=== PATIENT | male | born 1950 | race Caucasian/White ===

== ENCOUNTER 2019-11-19 05:25 | Day surgery (SDC) | payer MEDICARE ==
[~2019-11-19] VITALS: Ht 157.5 cm; Wt 63.1 kg
[2019-11-19] MEDS ORDERED: TAMS-11 PO (06:06)
[2019-11-19] MEDS ORDERED: OFLO5DRO7 TP (06:06)
[2019-11-19] MEDS ORDERED: LOTE2.8D TP (06:06)
[2019-11-19] MEDS ORDERED: FINA5TAB4 PO (06:06)
[2019-11-19] MEDS ORDERED: GABA100C PO (06:06)
[2019-11-19] MEDS ORDERED: LACTATED RINGERS 1,000 ML IV SCH (06:26)
[2019-11-19] MEDS ORDERED: CHLORHEXIDINE 15 ML UDC MM ONE (06:30)
[2019-11-19 06:55] VITALS: BP 136/75
[2019-11-19 06:55] LABS: MICROSCOPIC AUTO
[2019-11-19 07:02] LABS: BASOPHILS # (AUTO) 0.01 x10^3/uL (0-0.1); BASOPHILS % (AUTO) 0 % (0-1); EOSINOPHILS # (AUTO) 0.05 x10^3/uL (0-0.4); EOSINOPHILS % (AUTO) 1 % (1-7); LYMPHOCYTES # (AUTO) 1.16 x10^3/uL (1-3.4); LYMPHOCYTES % (AUTO) 22 % (22-44); MD NO; MEAN CORPUSCULAR HEMOGLOBIN 31.5 pg (27.5-34.5); MEAN CORPUSCULAR HGB CONC 33.8 g/dL (33.2-36.2); MEAN CORPUSCULAR VOLUME 93.2 fL (81-97); MEAN PLATELET VOLUME 8.3 fL (7.4-10.4); MONOCYTES # (AUTO) 0.35 x10^3/uL (0.2-0.8); MONOCYTES % (AUTO) 7 % (2-9); NEUTROPHILS # (AUTO) 3.79 x10^3/uL (1.8-6.8); NEUTROPHILS % (AUTO) 71 % (42-75); PLATELET COUNT 227 x10^3/uL (130-400); RED BLOOD COUNT 5.27 x10^6/uL (4.38-5.82); RED CELL DISTRIBUTION WIDTH 13.5 % (9.4-14.8)
[2019-11-19 07:09] LABS: PROTHROMBIN TIME 10.6 Seconds (9.6-11.5)
[2019-11-19 07:11] LABS: ALANINE AMINOTRANSFERASE 29 U/L (12-78); ALBUMIN 3.9 g/dL (3.4-5.0); ANION GAP 5 mmol/L (5-15); CALCIUM 8.6 mg/dL (8.5-10.1); CHLORIDE 110 mmol/L (98-107); CREATININE 0.63 mg/dL (0.7-1.3)
[2019-11-19 07:14] LABS: ALKALINE PHOSPHATASE 74 U/L (45-117); TOTAL PROTEIN 7.6 g/dL (6.4-8.2)
[2019-11-19] MEDS ORDERED: MIDAZOLAM 1 MG/ML, 2ML ONE (07:17)
[2019-11-19] MEDS ORDERED: FENTANYL PF 100 MCG/2ML ONE ×2 (07:17→07:45)
[2019-11-19] MEDS ORDERED: KETOROLAC 30 MG/1 ML IV PRN (08:00)
[2019-11-19] MEDS ORDERED: MEPERIDINE/PF 25MG/0.5ML IVPush PRN (08:00)
[2019-11-19] MEDS ORDERED: DIAZEPAM 5 MG/ML, 2ML IVPush PRN (08:00)
[2019-11-19] MEDS ORDERED: HYDROmorphone 2 MG/ML, 1ML IVPush PRN (08:00)
[2019-11-19] MEDS ORDERED: hydrALAzine 20 MG/ML, 1ML IV PRN (08:00)
[2019-11-19] MEDS ORDERED: FENTANYL PF 100 MCG/2ML IV PRN (08:00)
[2019-11-19] MEDS ORDERED: ACETAMINOPHEN 325 MG TABLET PO PRN (08:00)
[2019-11-19] MEDS ORDERED: OXYcodone 5 MG/5 ML ORAL.SOL UDC PO PRN (08:00)
[2019-11-19] MEDS ORDERED: LABETALOL 5MG/ML, 20ML IV PRN (08:00)
[2019-11-19] MEDS ORDERED: PROMETHAZINE 25 MG/ML, 1ML IV PRN (08:00)
[2019-11-19] MEDS ORDERED: ALBUTEROL SULFATE 2.5 MG/3 ML NPPB PRN (08:00)
[2019-11-19] MEDS ORDERED: NEOSTIGMINE 1 MG/ML, 10ML ONE (08:27)
[2019-11-19] MEDS ORDERED: SUCCINYLCHOLINE 20 MG/ML, 10ML ONE (08:27)
[2019-11-19] MEDS ORDERED: ROCURONIUM 10MG/ML,5ML ONE (08:27)
[2019-11-19] MEDS ORDERED: PROPOFOL 10 MG/ML, 20ML ONE (08:27)
[2019-11-19] MEDS ORDERED: CEFAZOLIN 1,000 MG ONE (08:27)
[2019-11-19] MEDS ORDERED: GLYCOPYRROLATE 0.2MG/1ML, 5ML ONE (08:27)
[2019-11-19] MEDS ORDERED: DEXAMETHASONE 4 MG/ML, 1ML ONE (08:27)
[2019-11-19] MEDS ORDERED: ONDANSETRON 2MG/ML, 2ML ONE (08:27)
== END 2019-11-19 11:50 | disposition home or self-care (01) ==
LOC: OUT 05:25
PROVIDERS: ATTEND Urology
DX: N21.0 Calculus in bladder (principal); Z11.59 Encounter for screening for other viral diseases; Z79.2 Long term (current) use of antibiotics; Z79.899 Other long term (current) drug therapy; Z98.890 Other specified postprocedural states
CPT/HCPCS: 36415; 52317; 80053; 81001; 82360; 85025; 85610; 87077; 87086; 87186; 87635; 88300; 93005; J0690; J1100; J2250; J2405; J2704; J3010; J7120; J2710; J0330

== ENCOUNTER 2020-02-03 08:37 | Inpatient (IN) | payer MEDICARE ==
[~2020-02-03] VITALS: Ht 157.5 cm; Wt 81.8 kg
[~2020-02-03 08:37] MED LIST: FINA5TAB4 PO; GABA100C PO; LOTE2.8D TP; OFLO5DRO7 TP; TAMS-11 PO
--- NOTE | 2020-02-03 08:59 | NUR ---
Pt arrives to ed for chronic cough with body aches. Pt reports chills at home and is unable to feel better. Pt reports son was ill at home. Pt reports negative COVID test in november. Pt in room awaiting further orders. Report to Low SZYMANSKI
[2020-02-03] MEDS ORDERED: ACETAMINOPHEN 500 MG TABLET ONE ×2 (09:09→09:12)
[2020-02-03] MEDS ORDERED: SODIUM CHLORIDE FLUSH 10ML SYR IVF ONE (09:30)
[2020-02-03] MEDS ORDERED: ACETAMINOPHEN 500 MG TABLET PO ONE (09:30)
[2020-02-03 09:55] LABS: BASOPHILS % (AUTO) 0 % (0-1); EOSINOPHILS % (AUTO) 0 % (1-7); LYMPHOCYTES % (AUTO) 19 % (22-44); MEAN CORPUSCULAR HEMOGLOBIN 30.5 pg (27.5-34.5); MEAN PLATELET VOLUME 7.6 fL (7.4-10.4); MONOCYTES % (AUTO) 11 % (2-9); NEUTROPHILS % (AUTO) 69 % (42-75); PLATELET COUNT 225 x10^3/uL (130-400); RED BLOOD COUNT 4.83 x10^6/uL (4.38-5.82); RED CELL DISTRIBUTION WIDTH 13.6 % (9.4-14.8)
[2020-02-03 09:58] LABS: ALBUMIN 3.2 g/dL (3.4-5.0); ANION GAP 7 mmol/L (5-15); CALCIUM 8.4 mg/dL (8.5-10.1); CHLORIDE 109 mmol/L (98-107); CREATININE 0.66 mg/dL (0.7-1.3)
[2020-02-03 09:59] LABS: MD NO
[2020-02-03] MEDS ORDERED: CEFTRIAXONE PMX 1GM/50ML 50 ML IV ONE (10:00)
[2020-02-03] MEDS ORDERED: SODIUM CHLORIDE 0.9% 1,000ML IVBOLUS ONE (10:00)
[2020-02-03] MEDS ORDERED: AZITHROMYCIN 500 MG in SODIUM CHLORIDE 0.9% 250 ML IV ONE (10:00)
[2020-02-03] MEDS ORDERED: CEFTRIAXONE PMX 1GM/50ML 50 ML ONE (10:03)
[2020-02-03] MEDS ORDERED: SODIUM CHLORIDE FLUSH 10ML SYR IVF PRN (11:30)
--- NOTE | 2020-02-03 11:51 | NUR ---
BREAK RN: MEAL TRAY ORDERED.
[2020-02-03] MEDS ORDERED: ENALAPRILAT 1.25 MG/ML, 2ML IVPush PRN (13:00)
[2020-02-03] MEDS ORDERED: ONDANSETRON 2MG/ML, 2ML IVPush PRN (13:00)
[2020-02-03] MEDS ORDERED: POTASSIUM CHLORIDE 20 MEQ TAB.ER.PRT PO ONE (13:00)
[2020-02-03] MEDS ORDERED: ACETAMINOPHEN 325 MG TABLET PO PRN (13:00)
[2020-02-03] MEDS ORDERED: DOCUSATE 100 MG CAPSULE PO PRN (13:00)
[2020-02-03] MEDS ORDERED: ENOXAPARIN 40 MG/0.4 ML ONE (13:18)
[2020-02-03] MEDS ORDERED: POTASSIUM CHLORIDE 20 MEQ TAB.ER.PRT ONE (13:18)
[2020-02-03 13:20] LABS: C-REACTIVE PROTEIN, QUANT 4.26 mg/dL (0.02-0.49)
[2020-02-03] MEDS: ENOXAPARIN 40 MG/0.4 ML SQ SCH (13:22)
--- NOTE | 2020-02-03 13:37 | NUR ---
PT PROVIDED WITH MEAL TRAY. DENIES FURTHER NEEDS AT THIS TIME
[2020-02-03 15:58] VITALS: BP 121/70
[2020-02-03 19:49] VITALS: BP 134/69
[2020-02-03] MEDS: IBUPROFEN 600 MG TABLET PO PRN (20:28)
[2020-02-03 21:09] LABS: MICROSCOPIC INDICATED
[2020-02-04 01:42] VITALS: BP 112/67
[2020-02-04] MEDS: IBUPROFEN 600 MG TABLET PO PRN ×2 (04:50→20:10)
[2020-02-04 05:29] LABS: BASOPHILS % (AUTO) 0 % (0-1); EOSINOPHILS % (AUTO) 0 % (1-7); LYMPHOCYTES % (AUTO) 37 % (22-44); MEAN CORPUSCULAR HEMOGLOBIN 30.5 pg (27.5-34.5); MEAN CORPUSCULAR HGB CONC 33.7 g/dL (33.2-36.2); MEAN PLATELET VOLUME 7.6 fL (7.4-10.4); MONOCYTES % (AUTO) 13 % (2-9); NEUTROPHILS % (AUTO) 49 % (42-75); PLATELET COUNT 210 x10^3/uL (130-400); RED BLOOD COUNT 4.49 x10^6/uL (4.38-5.82); RED CELL DISTRIBUTION WIDTH 13.9 % (9.4-14.8)
[2020-02-04 05:35] LABS: ALANINE AMINOTRANSFERASE 25 U/L (12-78); ALBUMIN 2.8 g/dL (3.4-5.0); ANION GAP 7 mmol/L (5-15); CALCIUM 8.2 mg/dL (8.5-10.1); CHLORIDE 113 mmol/L (98-107)
[2020-02-04 05:37] LABS: ALKALINE PHOSPHATASE 74 U/L (45-117); BILIRUBIN,TOTAL 0.5 mg/dL (0.2-1.0); TOTAL PROTEIN 6.5 g/dL (6.4-8.2)
[2020-02-04 05:47] LABS: MD NO
[2020-02-04 06:14] VITALS: BP 110/62
[2020-02-04] MEDS ORDERED: GUAIFENESIN 100 MG/5 ML, 5ML UDC PO PRN (09:00)
[2020-02-04] MEDS: LOTEPREDNOL ETABONATE HOMEOPHTH SCH (09:00)
[2020-02-04] MEDS ORDERED: GUAIFENESIN 100 MG/5 ML, 10ML UDC ONE (09:09)
[2020-02-04] MEDS: TAMSULOSIN 0.4 MG CAP.ER.24H PO SCH (09:16)
[2020-02-04] MEDS: CEFTRIAXONE PMX 1GM/50ML 50 ML IV SCH (09:16)
[2020-02-04] MEDS: GABAPENTIN 100 MG CAPSULE PO SCH (09:16)
[2020-02-04] MEDS: FINASTERIDE 5 MG TABLET PO SCH (09:16)
[2020-02-04] MEDS: AZITHROMYCIN 500 MG in SODIUM CHLORIDE 0.9% 250 ML IV SCH (10:43)
[2020-02-04] MEDS: ENOXAPARIN 40 MG/0.4 ML SQ SCH (11:52)
[2020-02-04 12:50] VITALS: BP 118/62
[2020-02-04] MEDS: GUAIFENESIN/COD200MG-20MG/10ML LIQUID PO PRN ×2 (14:11→20:17)
[2020-02-04 18:44] VITALS: BP 131/73
[2020-02-05 01:41] VITALS: BP 119/70
[2020-02-05 06:54] VITALS: BP 132/73
[2020-02-05] MEDS: LOTEPREDNOL ETABONATE HOMEOPHTH SCH (08:38)
[2020-02-05] MEDS: FINASTERIDE 5 MG TABLET PO SCH (08:45)
[2020-02-05] MEDS: GABAPENTIN 100 MG CAPSULE PO SCH (08:45)
[2020-02-05] MEDS: GUAIFENESIN/COD200MG-20MG/10ML LIQUID PO PRN (08:45)
[2020-02-05] MEDS: CEFTRIAXONE PMX 1GM/50ML 50 ML IV SCH (08:45)
[2020-02-05] MEDS: TAMSULOSIN 0.4 MG CAP.ER.24H PO SCH (08:46)
[2020-02-05] MEDS ORDERED: ZINC SULFATE 220 MG CAPSULE PO SCH (09:30)
[2020-02-05] MEDS: AZITHROMYCIN 500 MG in SODIUM CHLORIDE 0.9% 250 ML IV SCH (10:35)
[2020-02-05] MEDS: ENOXAPARIN 40 MG/0.4 ML SQ SCH (12:10)
[2020-02-05 13:39] VITALS: BP 115/68
[2020-02-05] MEDS ORDERED: ZINC220C7 PO (15:28)
[2020-02-05] MEDS ORDERED: CEFD300C37 PO (15:28)
[2020-02-05] MEDS ORDERED: ASCO500T9 PO (15:28)
[2020-02-05] MEDS ORDERED: AZIT500T PO (15:28)
[2020-02-05] MEDS ORDERED: ASCORBIC ACID 500 MG TABLET PO SCH (17:00)
== END 2020-02-05 17:11 | disposition home or self-care (01) | DRG 177 ==
LOC: ED 10:36 → EDIP 11:19 → SUATTDRO 12:05 → 4EST 15:52
PROVIDERS: ADMIT Family Medicine; ATTEND Internal Medicine
DX: U07.1 COVID-19 (principal); E43 Unspecified severe protein-calorie malnutrition; J12.89 Other viral pneumonia; E87.6 Hypokalemia; G62.9 Polyneuropathy, unspecified; N40.0 Benign prostatic hyperplasia without lower urinary tract symptoms; Z68.33 Body mass index [BMI] 33.0-33.9, adult
CPT/HCPCS: 36415; 71045; 80048; 80053; 81001; 82040; 82728; 83605; 83615; 84145; 85025; 85379; 86140; 87040; 87086; 87635; 96365; 96367; G0378; J0456; J0696; J1650; J7030; J7050